=== PATIENT | female | born 1990 | race Caucasian/White ===

== ENCOUNTER 2020-04-10 09:55 | Emergency (ER) | payer SELFPAY ==
[2020-04-10 10:05] VITALS: BP 138/86; PULSE 111; RESP 16; TEMP 36.6; O2SAT 100
--- NOTE | 2020-04-10 10:20 | PC.NURSE ---
1010-Pt heard coughing in room by tech after being placed in room.
--- NOTE | 2020-04-10 10:39 | ED.ABDPAIN ---
HPI - Abdominal Pain General Chief Complaint: Abdominal Pain Stated Complaint: NAUSEA/STOMACH PAIN Time Seen by Provider: 04/10/20 10:17 Source: patient and RN notes reviewed Mode of arrival: ambulatory Limitations: no limitations History of Present Illness HPI narrative: Patient presents today complaining of lower abdominal discomfort, nausea, vomiting, diarrhea, and sweats for the past 3 days. Denies fever or any urinary symptoms. States that she has had blood here and there in her diarrhea, last episode was yesterday, but she believes that this is due to severe straining. Patient has been taking Tylenol with mild relief. She has been able to keep down fluids well, but does not have an appetite to eat food. Patient works in a [employer] and states there has been a stomach bug going around that has affected several employees. Patient gets tested for COVID-19 twice weekly and had a negative test done yesterday. MD elicited complaint: abdominal pain Related Data Allergies Allergy/AdvReac Type Severity Reaction Status Date / Time No Known Allergies Allergy Verified 04/10/20 10:11 Review of Systems Review of Systems: Narrative: CONSTITUTIONAL: Denies body aches, fever, chills. + Sweats EYES: Denies visual changes, redness, or discharge. ENT: Denies rhinorrhea, congestion, sore throat, or otalgia. CARDIOVASCULAR: Denies chest pain, palpitations, or edema. RESPIRATORY: Denies cough or dyspnea. GASTROINTESTINAL: + Nausea, vomiting, diarrhea, abdominal pain GENITOURINARY: Denies dysuria or hematuria. SKIN: Denies rash, itching, or wounds. MUSCULOSKELETAL: Denies back pain, joint pain, or myalgia. NEUROLOGIC: Denies headache, numbness, tingling, or weakness. PSYCH: Denies depression or anxiety. PMFSH Comments At time of signature, I have reviewed and agree with nursing past medical, surgical, social and family history unless otherwise noted. Please see nursing chart for further information. There is no relevant family history pertinent to the presenting complaint Exam Narrative: Exam Narrative: GENERAL: Well-appearing, well-nourished, and in no acute distress. HEAD: Normocephalic, atraumatic. EYES: EOMI. No redness or drainage. Conjunctivae normal. ENT: Mucous membranes pink and moist. NECK: Normal AROM. Supple. No lymphadenopathy. CHEST: No respiratory distress. Clear to auscultation. HEART: Regular rate and rhythm. No murmur appreciated. Normal peripheral pulses. ABDOMEN: Soft,nondistended, normal active bowel sounds. Mild tenderness to the bilateral lower abdomen without rebound or guarding. Patient states she believes this is due to muscle strain due to vomiting. MUSCULOSKELETAL: No bony tenderness. EXTREMITIES: Normal range of motion. No edema. SKIN: Warm, dry, no rash. Capillary refill normal. Normal skin turgor. NEURO: No focal deficits. Alert and oriented x3. Gait steady. PSYCH: Normal affect. No signs of depression or anxiety. 6 Course Course Emergency Course: Offered patient transfer to the ER for further evaluation. States she would like to see how her symptoms go over the next couple of days, but states she will go to the ER if anything worsens or she sees anymore blood in her stool. Vital Signs Vital signs: Vital Signs Temperature 97.9 F 04/10/20 10:05 Pulse Rate 111 H 04/10/20 10:05 Respiratory Rate 16 04/10/20 10:05 Blood Pressure 138/86 04/10/20 10:05 Pulse Oximetry 100 04/10/20 10:05 Temperature 97.9 F 04/10/20 10:05 Pulse Rate 111 H 04/10/20 10:05 Respiratory Rate 16 04/10/20 10:05 Blood Pressure 138/86 04/10/20 10:05 Pulse Oximetry 100 04/10/20 10:05 Reviewed. Pt has been instructed to follow up with her PCP regarding her elevated blood pressure today. MDM - Abdominal Pain Differential Diagnosis Differential diagnosis: Likely abdominal pain, diverticulitis, gastroenteritis and other (Viral syndrome, enteritis, food poisoning) Critical Care Time Gloria
== END 2020-04-10 10:58 | disposition home or self-care (01) ==
PROVIDERS: Emergency Provider Nurse Practitioner
DX: R11.2 Nausea with vomiting, unspecified (principal); R19.7 Diarrhea, unspecified
CPT/HCPCS: 99213; G0463